=== PATIENT | male | born 1960 | race Caucasian/White ===

== ENCOUNTER 2018-11-10 09:41 | Outpatient (CLI) | payer OTHER ==
[~2018-11-10] VITALS: Ht 172.7 cm; Wt 108.9 kg
== END 2018-11-10 10:00 | disposition home or self-care (01) ==
LOC: OFIC 805 09:41
DX: K21.0 Gastro-esophageal reflux disease with esophagitis (principal); R09.81 Nasal congestion; J30.89 Other allergic rhinitis

== ENCOUNTER 2019-07-16 14:26 | Outpatient (CLI) | payer OTHER | END 2019-07-16 15:00 | disposition home or self-care (01) | LOC: EKG 14:26 | DX: I11.9 Hypertensive heart disease without heart failure (principal) ==

== ENCOUNTER 2019-12-26 12:48 | Emergency (ER) | payer OTHER ==
[~2019-12-26] VITALS: Ht 172.7 cm; Wt 140.6 kg
[2019-12-26] MEDS ORDERED: AVAPRO300 MG (12:55)
[2019-12-26] MEDS ORDERED: HUMALOG100 UNIT/2 (12:55)
== END 2019-12-26 18:07 | disposition home or self-care (01) ==
LOC: ER 12:48
DX: S80.01XA Contusion of right knee, initial encounter (principal); E11.649 Type 2 diabetes mellitus with hypoglycemia without coma; R42 Dizziness and giddiness; R07.89 Other chest pain; R53.1 Weakness; D72.828 Other elevated white blood cell count; Z03.818 Encounter for observation for suspected exposure to other biological agents ruled out; Z79.4 Long term (current) use of insulin; W18.39XA Other fall on same level, initial encounter; Y93.89 Activity, other specified; Y92.89 Other specified places as the place of occurrence of the external cause; Y99.8 Other external cause status

== ENCOUNTER 2020-09-23 19:33 | Inpatient (IN) | payer OTHER ==
[~2020-09-23] VITALS: Ht 160 cm
[~2020-09-23 19:33] MED LIST: AVAPRO300 MG; HUMALOG100 UNIT/2
[2020-09-25] MEDS ORDERED: NOVOLIN R100 UNIT/1 (14:15)
[2020-09-25] MEDS ORDERED: AMMONIUM LACTA385 GM (14:15)
[2020-09-25] MEDS ORDERED: DORZOLAMIDE HCL10 ML (14:15)
[2020-09-25] MEDS ORDERED: CEFUROXIME500 MG (14:17)
[2020-09-25] MEDS ORDERED: LUMIGAN2.5 M1 (14:17)
[2020-09-25] MEDS ORDERED: GABAPENTIN100 M2 (14:17)
[2020-09-25] MEDS ORDERED: COMBIGAN EYE DRO5 ML (14:17)
[2020-09-25] MEDS ORDERED: SIMVASTATIN20 MG (14:18)
[2020-09-25] MEDS ORDERED: CARVEDILOL25 M1 (14:18)
[2020-09-25] MEDS ORDERED: LEVOTHYROXINE25 MC1 (14:18)
== END 2020-10-24 19:06 | disposition home or self-care (01) | DRG 638 ==
LOC: ER 19:33 → MEDI 09-24 13:31
PROVIDERS: ADMIT Internal Medicine; ATTEND Internal Medicine
PROC: BQ3MY0Z Magnetic Resonance Imaging (MRI) of Left Foot using Other Contrast, Unenhanced and Enhanced (ICD-10-PCS; 2020-09-26)
PROC: 02HV33Z Insertion of Infusion Device into Superior Vena Cava, Percutaneous Approach (ICD-10-PCS; principal; 2020-09-29)
PROC: B54PZZZ Ultrasonography of Bilateral Upper Extremity Veins (ICD-10-PCS; 2020-10-01)
DX: E11.621 Type 2 diabetes mellitus with foot ulcer (principal); L97.429 Non-pressure chronic ulcer of left heel and midfoot with unspecified severity; L03.116 Cellulitis of left lower limb; E66.2 Morbid (severe) obesity with alveolar hypoventilation; E11.610 Type 2 diabetes mellitus with diabetic neuropathic arthropathy; E11.40 Type 2 diabetes mellitus with diabetic neuropathy, unspecified; E11.65 Type 2 diabetes mellitus with hyperglycemia; E03.8 Other specified hypothyroidism; R33.9 Retention of urine, unspecified; R30.0 Dysuria; I11.9 Hypertensive heart disease without heart failure; I25.10 Atherosclerotic heart disease of native coronary artery without angina pectoris; D64.9 Anemia, unspecified; B96.5 Pseudomonas (aeruginosa) (mallei) (pseudomallei) as the cause of diseases classified elsewhere; Z79.84 Long term (current) use of oral hypoglycemic drugs; H54.7 Unspecified visual loss; Z74.01 Bed confinement status; Z20.822 Contact with and (suspected) exposure to COVID-19